=== PATIENT | male | born 1985 | race Caucasian/White ===

== ENCOUNTER 2017-09-04 13:07 | Observation (INO) | payer OTHER ==
[2017-09-04] MEDS ORDERED: FENTAnyl 50 MCG/ML VIAL (15:10)
[2017-09-04] MEDS ORDERED: PROPOFOL 20 ML (15:10)
[2017-09-04] MEDS ORDERED: ROPIVACAINE 0.5 % 30 ML VIAL ×2 (15:10→15:49)
[2017-09-04] MEDS ORDERED: MIDAZOLAM 1 MG/ML 2 ML INJ (15:10)
[2017-09-04] MEDS ORDERED: ROCURONIUM 50 MG INJ (15:10)
[2017-09-04] MEDS ORDERED: LIDOCAINE 1% (MDV) 20 ML INJ (15:10)
[2017-09-04] MEDS ORDERED: DEXAMETHASONE 4 MG/ML 1 ML INJ ×2 (15:11→17:54)
[2017-09-04] MEDS ORDERED: DIPHENHYDRAMINE 25 MG CAP PO (15:30)
[2017-09-04] MEDS ORDERED: HYDROmorphONE 1 MG/ML SYG IV (15:30)
[2017-09-04] MEDS ORDERED: ALPRAZOLAM 0.25 MG TAB PO (15:30)
[2017-09-04] MEDS ORDERED: ONDANSETRON 4 MG INJ IV (15:30)
[2017-09-04] MEDS ORDERED: CEFAZOLIN 1 GM INJ IV (15:30)
[2017-09-04] MEDS ORDERED: NEOMYC/POLYMYX/BACIT 30 GM OINT (15:49)
[2017-09-04] MEDS ORDERED: CLINDAMYCIN 900 MG/D5W (PMX) 50 ML IVPB (15:54)
[2017-09-04] MEDS ORDERED: CEFAZOLIN 2 GM/50 ML (PMX) 50 ML IVPB (16:00)
[2017-09-04] MEDS: POLYMYXIN B 500000 UNIT INJ (17:01)
[2017-09-04] MEDS: MINERAL OIL LIGHT 10 ML VIAL (17:01)
[2017-09-04] MEDS: BACITRACIN 50000 UNITS INJ (17:01)
[2017-09-04] MEDS: THROMBIN 5000 UNIT VIAL (17:02)
[2017-09-04] MEDS: CA CHLORIDE 10% 10 ML SYRINGE (17:02)
[2017-09-04] MEDS ORDERED: KETOROLAC 30 MG INJ (17:53)
[2017-09-04] MEDS ORDERED: ONDANSETRON 4 MG INJ (17:54)
[2017-09-04] MEDS ORDERED: HYDROmorphONE 2 MG/ML SYG (17:57)
[2017-09-04] MEDS ORDERED: SUGAMMADEX SODIUM 200 MG/2 ML VIAL IV (18:05)
[2017-09-04] MEDS ORDERED: MEPERIDINE 25 MG INJ (18:17)
[2017-09-04] MEDS: MEPERIDINE 25 MG INJ IV (19:10)
[2017-09-04] MEDS: oxyCODONE 5 MG TAB PO ×2 (20:00→21:25)
[2017-09-04] MEDS: PREGABALIN 75 MG CAP NGT (21:25)
[2017-09-04] MEDS ORDERED: CLINDAMYCIN 900 MG INJ IVPB (21:30)
[2017-09-04] MEDS: CLINDAMYCIN 900 MG/D5W (PMX) 50 ML IVPB (23:00)
[2017-09-05] MEDS: oxyCODONE 5 MG TAB PO ×4 (02:17→13:30)
[2017-09-05] MEDS: CLINDAMYCIN 900 MG/D5W (PMX) 50 ML IVPB (06:14)
[2017-09-05] MEDS: ASPIRIN 81 MG TAB PO (06:15)
[2017-09-05] MEDS: PREGABALIN 75 MG CAP NGT (08:51)
== END 2017-09-05 13:53 | disposition home or self-care (01) ==
LOC: SDS 13:07 → REC 18:56 → MS1 19:50
DX: S86.012A Strain of left Achilles tendon, initial encounter (principal); F17.210 Nicotine dependence, cigarettes, uncomplicated; X58.XXXA Exposure to other specified factors, initial encounter
CPT/HCPCS: 27652; 82306; 97116; 97162; 99217